=== PATIENT | male | born 1945 | race Two or more races ===

== ENCOUNTER → 2024-12-11 | Outpatient (CLI) | payer OTHER, SELFPAY ==
--- NOTE | 2024-12-11 13:14 | XR_ITS ---
Examination: AP chest single view Technique: AP upright portable chest single view Exam date and time: December 11, 2024 1559 hrs. Comparison February 27, 2023 Indications: Coughing one month. Findings: Mild accentuation basilar bronchovascular markings. No lobar pneumonia No significant cardiac enlargement Impression: Mild basilar bronchitis pattern
--- NOTE | 2024-12-11 13:14 | XR_ITS ---
Examination: Knee, left , 3 views Technique: Knee AP, lateral, oblique 3 views Date and time of exam: December 11, 2024 1346 hrs. 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
== END | disposition home or self-care (01) ==
PROVIDERS: PCP Internal Medicine; Referring Provider Internal Medicine; Visit Provider Internal Medicine
DX: M17.12 Unilateral primary osteoarthritis, left knee (principal); R05.9 Cough, unspecified
CPT/HCPCS: 71046; 73562

== ENCOUNTER 2025-01-13 14:15 | Outpatient (AMB) | payer OTHER, MEDICAID, SELFPAY ==
[2025-01-13 14:40] VITALS: BP 156/59; PULSE 62; RESP 18; TEMP 36.8; O2SAT 98; BMI 25.8
--- NOTE | 2025-01-13 14:40 | ORTHONT_ITS ---
Vital signs 01/13/25 14:40 Height 1.73 m Height Method Stated Weight 77.111 kg Weight Measurement Method Standing Scale BMI 25.8 BP 156/59 H Blood Pressure Source Automatic Cuff Blood Pressure Location Right Upper Arm Position Sitting Respiration 18 Pulse 62 Pulse Source Monitor Temp 98.2 F Temp Source Temporal Artery Scan Pulse Oximetry (%) 98 Oxygen Delivery Method Room Air Med/Allergies Allergies & Medications Allergies Penicillins Allergy (Unknown, Verified 01/13/25 14:41) Rash Sulfa (Sulfonamide Antibiotics) Allergy (Unknown, Verified 01/13/25 14:41) Rash Medication Reconciliation Fluoxetine Hcl 10 mg PO QDAY ##30 08/19/15 [History Confirmed 01/13/25] pantoprazole 20 mg tablet,delayed release 20 mg PO QDAY #30 tabs 02/26/23 [Rx Confirmed 01/13/25] sodium bicarbonate 325 mg tablet 325 mg PO QDAY #30 tabs 02/26/23 [Rx Confirmed 01/13/25] losartan 50 mg tablet 50 mg PO QDAY 08/10/23 [History Confirmed 01/13/25] Exam Exam Patient is in no acute distress and is cooperative with the examination today. Breathing is nonlabored. Patient has a normal mood and affect. Bilateral extremities were evaluated and demonstrates sensation intact to light touch. Palpable pedal pulses are present. No significant edema is present. Bilateral hips were examined. The patient has no pain with log roll of the hips. Internal rotation to 30 degrees and external rotation to 30 degrees is painless. Negative FADIR. Right knee was examined today. The right knee is in reasonable alignment. Range of motion from 0-120 degrees. Knee is stable to varus and valgus as well as AP translation with <5mm. Patient has a negative McMurrays. There is no pain with patellofemoral compression and no crepitus noted. The knee is nontender to palpation. Left knee was examined today. The left knee is in varus alignment. Range of motion from 0-115 degrees. Knee is stable to varus and valgus as well as AP translation with <5mm. Patient has a negative McMurrays. There is no pain with patellofemoral compression and no crepitus noted. The knee is tender to palpation medially. Left knee x-rays are nonweightbearing. This demonstrates moderate joint space narrowing medially. 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 He cannot take any anti-inflammatories thus because of the kidney issues. We discussed nonoperative treatment as he would not be a great surgical candidate. He would only benefit from conservative treatment. I would recommend Tylenol and possibly a cortisone injection. I would like to get weightbearing x-rays since his last ones were supine. Advanced Care Planning Discussion Advance care planning discussed with:: patient Office Procedures GNS Level of Care Nursing/Assessment Patient Status: Initial/New Patient Nursing Assessment/Reassesment: Medication Reconciliation and Update PMH in EMR Coordination of Care: Complex Care and Chronic Disease 1-5, Consent,records obtained, informed consent, 1 Ins Authorization, Lab and Imaging orders, Results/Orders obtained and Staff clarify orders Special Needs: Language special needs (GERMAN ) New Patient Charge New Patient Point Assignment: 5660 New Patient Point Charge: BILLET EXAMINER Level 3 (8439-5062) MA Intake Visit Data Collection New Patient or Established: Established Patient (seen at [facility] within 3 years) Reason for Visit:: LT KNEE PAIN Seen by Clinical Staff ONLY (RN/MA): 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 PCP or OBGYN visit in last 3 months: Yes Hx Now: No Do You Feel Safe at Home: Yes Authorities Contacted: N/A Questionairres Past Medical History Past Medical History Have you ever been diagnosed with any of the following: Neurological Problems Seizures: No Cardiology Problems Congestive Heart Failure: No Hypertension: Yes Respiratory Problems Chronic Obstructive Pulmonary Disease (COPD): No Smoking: No Smoking Cessation Counseling: No Smoking Exposure: No Tobacco Use: No Stomache/Intestinal Problems Gastroesophageal Reflux Disease: Yes Genital/Urinary Problems Renal Disease: Yes (no fuction to left kidney, right kidney 26% function) Musculoskeletal Problems Arthritis: Yes (hands) Head,Eye,Nose,Throat Problems Cataracts: Yes Endocrine Problems Diabetes Mellitus Type 1: No Diabetes Mellitus Type 2: No Psychologic Problems Depression: Yes Other Problems Blood Transfusions: No Anesthesia Reactions: No Subjective Visit Visit for: new patient and knee (LT KNEE ) Immunization / Flu Flu Vaccine in the Last 12 Months: No Flu Vaccine Exclusion Criteria: Refused by Patient History of Present Illness Chief complaint: left knee pain Patient is a pleasant 79-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 He has had a left knee pain for over a year and a half. He has histoplasmosis of his brain and adrenal gland. He reports that he has been having difficulty walking due to the left knee pain. The pain is on the medial side. Personal History Red flag PMH: none Pain Pain level (0-10): 7 Pain duration: 1 YEAR Pain location: anterior and posterior Pain quality: sharp and aching Pain timing: night and increases with activity Associated signs & symptoms: weakness Ambulatory data Ambulatory device: other (specify) (WHEELCHAIR ) Walking distance (minutes): 2 Treatments Number of previous injections: 0 Number of Physical Therapy sessions: 8 Improvement with PT: Yes Improvement with NSAIDS: n/a Review of Systems Review of Systems: All systems negative unless otherwise noted in HPI.
--- NOTE | 2025-01-13 14:49 | XR_ITS ---
Examination: Bilateral AP knees single view Left knee PA flexion standing lateral standing axial 3 views TECHNIQUE: Bilateral AP knees standing single view PA left knee flexion standing, lateral standing, axial left knee 3 views total 4 views Exam date and time: January 13, 2025 1508 hours INDICATIONS: Knee pain months FINDINGS: Prominent osteopenia Advanced narrowing medial joint spaces bilaterally Significant osteoarthritis left patellofemoral joint No fractures IMPRESSION: Advanced narrowing medial joint spaces bilaterally Significant osteoarthritis left patellofemoral joint
== END 2025-01-13 15:04 | disposition home or self-care (01) ==
PROVIDERS: PCP Internal Medicine; Referring Provider Internal Medicine; Supervising Provider Orthopaedic Surgery Adult Reconstructive Orthopaedic Surgery; Visit Provider Orthopaedic Surgery Adult Reconstructive Orthopaedic Surgery
DX: M17.12 Unilateral primary osteoarthritis, left knee (principal); I10 Essential (primary) hypertension
CPT/HCPCS: 73564; 99203; G0463

== ENCOUNTER 2025-01-29 14:08 | Outpatient (AMB) | payer OTHER, MEDICAID, SELFPAY ==
--- NOTE | 2025-01-29 14:28 | ORTHONT_ITS ---
Vital signs 01/29/25 14:29 Height 1.73 m Height Method Stated Weight 77 kg Weight Measurement Method Estimated by Patient BMI 25.7 BP 145/64 H Blood Pressure Source Automatic Cuff Blood Pressure Location Right Upper Arm Position Sitting Respiration 18 Pulse 52 L Pulse Source Monitor Temp 98.3 F Temp Source Temporal Artery Scan Pulse Oximetry (%) 98 Oxygen Delivery Method Room Air Med/Allergies Allergies & Medications Allergies Penicillins Allergy (Unknown, Verified 01/29/25 14:29) Rash Sulfa (Sulfonamide Antibiotics) Allergy (Unknown, Verified 01/29/25 14:29) Rash Medication Reconciliation Fluoxetine Hcl 10 mg PO QDAY ##30 08/19/15 [History Confirmed 01/29/25] pantoprazole 20 mg tablet,delayed release 20 mg PO QDAY #30 tabs 02/26/23 [Rx Confirmed 01/29/25] sodium bicarbonate 325 mg tablet 325 mg PO QDAY #30 tabs 02/26/23 [Rx Confirmed 01/29/25] losartan 50 mg tablet 50 mg PO QDAY 08/10/23 [History Confirmed 01/29/25] Exam Exam Patient is in no acute distress and is cooperative with the examination today. Breathing is nonlabored. Patient has a normal mood and affect. Bilateral extremities were evaluated and demonstrates sensation intact to light touch. Palpable pedal pulses are present. No significant edema is present. Bilateral hips were examined. The patient has no pain with log roll of the hips. Internal rotation to 30 degrees and external rotation to 30 degrees is painless. Negative FADIR. Right knee was examined today. The right knee is in reasonable alignment. Range of motion from 0-120 degrees. Knee is stable to varus and valgus as well as AP translation with <5mm. Patient has a negative McMurrays. There is no pain with patellofemoral compression and no crepitus noted. The knee is nontender to palpation. Left knee was examined today. The left knee is in varus alignment. Range of motion from 0-115 degrees. Knee is stable to varus and valgus as well as AP translation with <5mm. Patient has a negative McMurrays. There is no pain with patellofemoral compression and no crepitus noted. The knee is tender to palpation medially. 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 He cannot take any anti-inflammatories thus because of the kidney issues. We discussed nonoperative treatment as he would not be a great surgical candidate. He would only benefit from conservative treatment. He has significant left knee arthritis and would like a cortisone injection. We discussed that there is a risk that this could worsen his histoplasmosis given that it is a steroid. Advanced Care Planning Discussion Advance care planning discussed with:: patient and spouse Office Procedures GNS Level of Care Nursing/Assessment Patient Status: Established Patient Nursing Assessment/Reassesment: Medication Reconciliation, Update PMH in EMR and Vital Signs Coordination of Care: Complex Care and Chronic Disease 1-5, Education Complex Pt/Fam, Consent,records obtained, informed consent, Results/Orders obtained and Staff clarify orders Special Needs: Language special needs Established Patient Charge Established Patient Point Assignment: 95 Established Patient Point Charge: EP Level 3 (80-115) MA Intake Visit Data Collection New Patient or Established: Established Patient (seen at [facility] within 3 years) Reason for Visit:: F/U XRAYS Seen by Clinical Staff ONLY (RN/MA): No Verbal consent obtained for Telemed visit?: No Hotel Baggage Handler Required: Yes PCP or OBGYN visit in last 3 months: Yes Hx Now: No Do You Feel Safe at Home: Yes Authorities Contacted: N/A Questionairres Past Medical History Past Medical History Have you ever been diagnosed with any of the following: Neurological Problems Seizures: No Cardiology Problems Congestive Heart Failure: No Hypertension: Yes Respiratory Problems Chronic Obstructive Pulmonary Disease (COPD): No Smoking: No Smoking Cessation Counseling: No Smoking Exposure: No Tobacco Use: No Stomache/Intestinal Problems Gastroesophageal Reflux Disease: Yes Genital/Urinary Problems Renal Disease: Yes (no fuction to left kidney, right kidney 26% function) Musculoskeletal Problems Arthritis: Yes (hands) Head,Eye,Nose,Throat Problems Cataracts: Yes Endocrine Problems Diabetes Mellitus Type 1: No Diabetes Mellitus Type 2: No Psychologic Problems Depression: Yes Other Problems Blood Transfusions: No Anesthesia Reactions: No Subjective Visit Visit for: follow up visit and x-rays Immunization / Flu Flu Vaccine in the Last 12 Months: No Flu Vaccine Exclusion Criteria: No Exclusion Criteria History of Present Illness Chief complaint: F/U XRAYS Patient is a pleasant 79-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 He has had a left knee pain for over a year and a half. He has histoplasmosis of his brain and adrenal gland. He reports that he has been having difficulty walking due to the left knee pain. The pain is on the medial side. Personal History Occupation: DISABLED Red flag PMH: BMI BMI Counceling provided: Yes Pain Pain level (0-10): 6 Pain duration: ALL DAY Pain location: anterior and posterior Pain quality: sharp, dull and aching Pain timing: increases with activity Associated signs & symptoms: none Ambulatory data Ambulatory device: other (specify) (WHEELCHAIR) Walking distance (minutes): 2 Treatments Number of previous injections: 0 Improvement with previous injections: No Number of Physical Therapy sessions: 8 Improvement with PT: No Improvement with NSAIDS: no Review of Systems Review of Systems: All systems negative unless otherwise noted in HPI.
[2025-01-29 14:29] VITALS: BP 145/64; PULSE 52; RESP 18; TEMP 36.8; O2SAT 98; BMI 25.7
== END 2025-01-29 14:52 | disposition home or self-care (01) ==
LOC: HODSRG 14:08
PROVIDERS: PCP Internal Medicine; Referring Provider Internal Medicine; Supervising Provider Orthopaedic Surgery Adult Reconstructive Orthopaedic Surgery; Visit Provider Orthopaedic Surgery Adult Reconstructive Orthopaedic Surgery
DX: M17.12 Unilateral primary osteoarthritis, left knee (principal); B39.9 Histoplasmosis, unspecified; N17.9 Acute kidney failure, unspecified; M25.562 Pain in left knee; I10 Essential (primary) hypertension; K21.9 Gastro-esophageal reflux disease without esophagitis
CPT/HCPCS: 99213; G0463

== ENCOUNTER → 2025-05-29 | Outpatient (CLI) | payer OTHER, MEDICAID, SELFPAY ==
--- NOTE | 2025-05-29 15:05 | XR_ITS ---
Examination: Retroperitoneal ultrasound, complete Technique: Multiple high resolution grayscale images of the retroperitoneum obtained, including kidneys and bladder. Exam date and time:July 29 thousand 25, 1531 hours INDICATIONS: Abnormal renal function tests on laboratory examination 2 months ago FINDINGS: Right kidney 9.5 cm renal cortex 1.4 cm Midpole cyst 6 mm Left kidney 9.2 cm cortex 1.3 cm Moderate renal parenchymal scar formation No bladder mass or bladder calculi, bladder prevoid volume 97 cc Prostate volume 28.53 cc no prostate nodules IMPRESSION: Moderate bilateral renal cortical scar formation No hydronephrosis Bilateral renal cortical thinning
== END | disposition home or self-care (01) ==
LOC: CDIM 14:53
PROVIDERS: PCP Internal Medicine; Referring Provider Internal Medicine; Visit Provider Internal Medicine
DX: N28.89 Other specified disorders of kidney and ureter (principal)
CPT/HCPCS: 76770

== ENCOUNTER → 2025-06-01 | Outpatient (CLI) | payer OTHER, MEDICAID, SELFPAY ==
--- NOTE | 2025-06-01 15:54 | EKG_ITS ---
[facility] Test Date: 2025-06-01 Pat Name: SHANNAN CARREON Department: Room: - Gender: Male Quality Assurance Project Manager: JULIEN : 1945 Requested By: Carolyn Bradshaw Order Number: [id number] Reading MD: Carolyn Bradshaw Measurements Intervals [place] Rate: 54 P: 13 GA: 144 QRS: -10 QRSD: 90 T: 131 QT: 461 QTc: 437 Interpretive Statements SINUS BRADYCARDIA POSSIBLE RIGHT VENTRICULAR CONDUCTION DELAY [RSR (QR) IN V1/V2] NONSPECIFIC T-WAVE ABNORMALITY No previous ECG available for comparison /store/[email or web address]/[id number]
== END | disposition home or self-care (01) ==
PROVIDERS: PCP Internal Medicine; Referring Provider Internal Medicine; Visit Provider Internal Medicine
DX: Z01.810 Encounter for preprocedural cardiovascular examination (principal); R80.9 Proteinuria, unspecified; E78.5 Hyperlipidemia, unspecified; E11.22 Type 2 diabetes mellitus with diabetic chronic kidney disease; N18.9 Chronic kidney disease, unspecified; Z01.818 Encounter for other preprocedural examination
CPT/HCPCS: 93005

== ENCOUNTER → 2025-08-31 | Outpatient (CLI) | payer OTHER, MEDICAID, SELFPAY ==
[2025-08-31 14:32] LABS: Basophils # (Auto) 0.1 Thou/mm3 (0.0-0.2); Basophils % (Auto) 1 % (0-2.5); Eosinophils # (Auto) 0.0 Thou/mm3 (0.0-0.5); Eosinophils % (Auto) 0 % (0-10); Hematocrit 36.4 % (41.0-53.0); Hemoglobin 11.8 g/dL (13.5-16.0); Immature Granulocytes Auto 0.02 Thou/mm3 (0.00-0.00); Lymphocytes # (Auto) 1.9 Thou/mm3 (1.0-4.8); Lymphocytes % (Auto) 22 % (10-50); Mean Corpuscular HGB Conc 32.4 g/dl (31.0-37.0); Mean Corpuscular Hemoglobin 29.0 pg (25.0-35.0); Mean Corpuscular Volume 89 fL (80-100); Monocytes # (Auto) 0.5 Thou/mm3 (0.0-0.8); Monocytes % (Auto) 6 % (0-12); Neutrophils # (Auto) 6.3 Thou/mm3 (1.8-7.7); Neutrophils % (Auto) 71 % (37-80); Nucleated Red Blood Cell # 0.00 Thou/mm3 (0.00-0.00); Nucleated Red Blood Cell % 0 /100 WBC (0); Platelet Count 289 Thou/mm3 (140-440); RDW Standard Deviation 44.3 fL (35.1-43.9); Red Blood Count 4.07 Miln/mm3 (4.50-5.90); White Blood Count 8.8 Thou/mm3 (3.8-10.6)
[2025-08-31 14:42] LABS: Parathyroid Hormone Intact 179.9 pg/ml (18.5-88.0)
[2025-08-31 14:48] LABS: Glucose Estimated Average 108 mg/dL (80-131); Hemoglobin A1C 5.4 % Hgb (4.8-6.0)
[2025-08-31 14:51] LABS: Vitamin D 25 Hydroxy Total 21.3 ng/mL (7.3-40.2)
[2025-08-31 14:54] LABS: Alanine Aminotransferase 13 U/L (10-49); Albumin, Serum 4.0 gm/dL (3.4-4.8); Albumin/Globulin Ratio 1.5 (1.2-2.2); Alkaline Phosphatase 157 U/L (46-116); Anion Gap 10 (7-16); Aspartate Amino Transferase 17 U/L (0-34); BUN/Creatinine Ratio 13 Ratio (12-20); Bilirubin,Total 0.4 mg/dL (0.3-1.2); Blood Urea Nitrogen 44 mg/dL (9-23); Calcium 9.0 mg/dL (8.3-10.6); Calcium (Corrected) 9.0 mg/dL (8.5-10.1); Carbon Dioxide 25.3 mMol/L (20.0-31.0); Cardiac Risk Estimate 2.7 RATIO (4.0-6.7); Chloride 107 mMol/L (98-107); Cholesterol 155 mg/dL (132-200); Creatinine (Component) 3.4 mg/dL (0.6-1.3); Globulin 2.7 gm/dL (2.3-3.5); Glucose 105 mg/dL (74-106); HDL Cholesterol 58 mg/dL (40-60); LDL Cholesterol,Calculated 74 mg/dL (0-130); Osmolality,Calculated 294 (275-295); Phosphorous 4.8 mg/dL (2.4-5.1); Potassium 5.2 mMol/L (3.4-5.1); Sodium 142 mMol/L (136-145); Thyroid Stimulating Hormone 1.45 uIU/mL (0.55-4.78); Total Protein 6.7 gm/dL (5.7-8.2); Triglycerides 116 mg/dL (30-150); eGFR 18 See Note
[2025-08-31 15:03] LABS: Creatinine,Random Urine 107 mg/dL (30-125); Protein Total, Random Urine 243 mg/dL (1-14)
[2025-08-31 15:41] LABS: Iron 69 mcg/dL (65-175); Percent Iron Saturation 24 % (20-55); Total Iron Binding Capacity 281 mcg/dL (250-425); Unsaturated Iron Binding 212 (225-295)
== END | disposition home or self-care (01) ==
LOC: COPL 13:39
PROVIDERS: PCP Family Medicine; Referring Provider Internal Medicine; Visit Provider Student in an Organized Health Care Education/Training Program
DX: I12.9 Hypertensive chronic kidney disease with stage 1 through stage 4 chronic kidney disease, or unspecified chronic kidney disease (principal); N18.4 Chronic kidney disease, stage 4 (severe); R60.9 Edema, unspecified; B39.9 Histoplasmosis, unspecified
CPT/HCPCS: 36415; 80053; 80061; 82306; 82570; 83036; 83540; 83550; 83970; 84100; 84156; 84443; 85025